=== PATIENT | male | born 1950 | race Caucasian/White ===

== ENCOUNTER 2019-09-20 14:16 | Outpatient (CLI) | payer MEDICARE, BC | END 2019-09-20 23:59 | disposition home or self-care (01) | LOC: ROC 14:16 | PROVIDERS: ATTEND Radiology Radiation Oncology | DX: Z08 Encounter for follow-up examination after completed treatment for malignant neoplasm (principal); C61 Malignant neoplasm of prostate | CPT/HCPCS: G0463 ==

== ENCOUNTER 2019-10-09 08:04 | Outpatient (CLI) | payer MEDICARE, BC | END 2019-10-09 23:59 | disposition home or self-care (01) | LOC: ROC 08:04 | PROVIDERS: ATTEND Radiology Radiation Oncology | DX: C61 Malignant neoplasm of prostate (principal) | CPT/HCPCS: G0463 ==

== ENCOUNTER 2019-10-30 07:15 | Outpatient (CLI) | payer MEDICARE, BC ==
[2019-10-30] MEDS ORDERED: LIDOCAINE/PF 1%, 30ML IVPB ONE (10:00)
== END 2019-10-30 23:59 | disposition home or self-care (01) ==
LOC: ROC 07:15
PROVIDERS: ATTEND Radiology Radiation Oncology
DX: C61 Malignant neoplasm of prostate (principal)
CPT/HCPCS: 55876; 76942; 77332; A4648; G0463; 99156

== ENCOUNTER → 2019-11-05 | Outpatient (CLI) | payer MEDICARE, BC | END | disposition home or self-care (01) | LOC: CFH 12:27 | PROVIDERS: ATTEND Radiology Radiation Oncology | DX: C61 Malignant neoplasm of prostate (principal) | CPT/HCPCS: 72195 ==

== ENCOUNTER 2020-02-21 08:25 | Outpatient (CLI) | payer MEDICARE, BC | END 2020-02-21 23:59 | disposition home or self-care (01) | LOC: ROC 08:25 | PROVIDERS: ATTEND Radiology Radiation Oncology | DX: Z08 Encounter for follow-up examination after completed treatment for malignant neoplasm (principal); C61 Malignant neoplasm of prostate | CPT/HCPCS: G2012 ==

== ENCOUNTER 2020-08-20 09:10 | Outpatient (CLI) | payer MEDICARE, BC | END 2020-08-20 23:59 | disposition home or self-care (01) | LOC: ROC 09:10 | PROVIDERS: ATTEND Radiology Radiation Oncology | DX: Z02.9 Encounter for administrative examinations, unspecified (principal) ==